=== PATIENT | male | born 1970 | race African-American/Black ===

== ENCOUNTER 2017-03-08 11:14 | Emergency (ER) | payer OTHER ==
[~2017-03-08] VITALS: Ht 185.4 cm; Wt 97.5 kg
== END 2017-03-08 12:55 | disposition home or self-care (01) ==
LOC: CFTX 11:14 → CED 11:14 → CFTX 12:01
DX: L72.3 Sebaceous cyst (principal); Z88.0 Allergy status to penicillin
CPT/HCPCS: 99283

== ENCOUNTER 2017-03-15 12:02 | Emergency (ER) | payer OTHER ==
[~2017-03-15] VITALS: Ht 188 cm; Wt 97.5 kg
== END 2017-03-15 12:25 | disposition home or self-care (01) ==
LOC: CED 12:02 → CFTX 12:02
DX: Z48.02 Encounter for removal of sutures (principal); F17.210 Nicotine dependence, cigarettes, uncomplicated
CPT/HCPCS: 99281